=== PATIENT | female | born 1965 | race Asian ===

== ENCOUNTER 2016-12-12 13:12 | Emergency (ER) | payer SELFPAY ==
[~2016-12-12 13:12] MED LIST: AMLO2.5T PO; LISI5TAB7 PO; LOSA25TA5 PO
== END 2016-12-12 14:36 | disposition left against medical advice (07) ==
LOC: ED 14:30
DX: S61.256A Open bite of right little finger without damage to nail, initial encounter (principal)

== ENCOUNTER 2020-12-28 21:51 | Emergency (ER) | payer OTHER ==
[~2020-12-28] VITALS: Ht 160 cm; Wt 61.9 kg
[~2020-12-28 21:51] MED LIST changes: -AMLO2.5T PO; +AMLO2.5T5 PO; +LOSA25TA25 PO; -LOSA25TA5 PO
[2020-12-28 22:05] VITALS: BP 150/129
[2020-12-28] MEDS ORDERED: SULFAMETH./TRIMETHOPRIM DS 800MG/160MG TABLET PO ONE (23:00)
[2020-12-28] MEDS ORDERED: CEPHALEXIN 500 MG CAPSULE ONE (23:00)
[2020-12-28] MEDS ORDERED: CEPHALEXIN 500 MG CAPSULE PO ONE (23:00)
[2020-12-28] MEDS ORDERED: SULFAMETH./TRIMETHOPRIM DS 800MG/160MG TABLET ONE (23:01)
== END 2020-12-28 23:12 | disposition home or self-care (01) ==
LOC: ED 22:21
DX: L03.114 Cellulitis of left upper limb (principal); I10 Essential (primary) hypertension
CPT/HCPCS: 99283